=== PATIENT | female | born 1980 | race Caucasian/White ===

== ENCOUNTER 2018-02-22 18:07 | Outpatient (CLI) | payer OTHER ==
[2018-02-22 18:27] VITALS: BP 116/69
[2018-02-22] MEDS ORDERED: LACTATED RINGERS 500 ML IV ONE (18:50)
[2018-02-22 19:53] LABS: Bilirubin,Urine NEG (Negative); Blood,Urine NEG (Negative); Color,Urine Straw (Yellow); Protein,Urine <15 mg/dL mg/dL (Negative); Urobilinogen,Urine < 2.0 mg/dL (<2.0); WBC,Urine < 1.0 /HPF (0.0-6.0)
== END 2018-02-22 20:48 | disposition home or self-care (01) ==
LOC: TRG 18:07
PROVIDERS: ATTEND Obstetrics & Gynecology
DX: O47.03 False labor before 37 completed weeks of gestation, third trimester (principal); Z3A.33 33 weeks gestation of pregnancy
CPT/HCPCS: 59025; 81001; 96360; J7120

== ENCOUNTER 2018-02-23 19:04 | Inpatient (IN) | payer OTHER ==
[2018-02-23] MEDS ORDERED: LACTATED RINGERS 1,000 ML IV ONE (19:30)
[2018-02-23] MEDS ORDERED: XYLOCAINE 1% MPF 5 mL INFILTRATI ONE (20:45)
[2018-02-23 20:48] LABS: Bilirubin,Urine NEG (Negative); Blood,Urine NEG (Negative); Color,Urine Yellow (Yellow); Mucus,Urine FEW /HPF; Protein,Urine <15 mg/dL mg/dL (Negative)
[2018-02-23] MEDS ORDERED: BRETHINE SUB-Q ONE (20:55)
--- NOTE | 2018-02-23 20:55 | History and Physical Report ---
History of Present Illness Chief complaint: contractions History of present illness: 37yo 32 weeks presented to L&D complaining of contractions. NST reveals contractions every 2-3min. This is her second admission in 2 days. She has had a vaginal exam within last 24hrs so no fibronectin was done. Multiparous cervix outer os 0-1, inner os closed/thick/high. She denies loss of fluid or vaginal bleeding. She is a patient of [facility]. She states she is not being co- managed by maternal medicine for advanced maternal age. Past History - Obstetrical History : 5 Medications and Allergies Allergies Allergy/AdvReac Type Severity Reaction Status Date / Time No Known Allergies Allergy Unverified 02/22/18 18:49 Home Medications Medication Instructions Recorded Confirmed Last Taken Type Iron 256 MG tab 1 tab PO QDAY 02/22/18 02/22/18 02/22/18 10:00 History Multivitamin Tablet 1 tab PO QDAY 02/22/18 02/22/18 1 Month Ago History ~01/23/18 Active Meds: Active Medications Betamethasone Acet/Betameth SodPhos (Celestone Soluspan) 12 mg IM Q24HR LUZ Ceftriaxone Sodium (Rocephin/Ns 2 Gm/100 Ml) 2 gm in 100 mls @ 200 mls/hr IV ONCE LUZ - Vital Signs Vital signs: Vital Signs Pulse Pulse Ox 101 H 99 02/23/18 19:25 02/23/18 19:25 Temp Pulse Resp BP Pulse Ox 98 F 88 18 114/71 98 02/23/18 19:32 02/23/18 20:50 02/23/18 19:32 02/23/18 19:29 02/23/18 20:50 - Obstetrical FHR: category 1 Uterine Contraction Monitor Mode: External Cervical Dilatation: 0 Cervical Effacement Percentage: 30 station: 40 Uterine Contraction Pattern: Regular Results All other labs normal. Assessment and Plan - Patient Problems (1) 32 weeks gestation of Current Visit: Yes Status: Acute (2) contractions Current Visit: Yes Status: Acute Plan to address problem: 1. Terbutaline x 1 2. IV hydration. UA yesterday reveals small amount of WBC. Will give Rocephin for UTI. 3. fFN if patient is hospitalized >24hrs 4. US cervical length, EFW, ANDREW evaluate for polyhydramnios, LGA. 5. Steroids for lung maturity. 6. Monitor for labor, continuous monitoring. (3) Advanced maternal age in Current Visit: Yes Status: Acute Plan to address problem: 1. Refer to [facility] if indicated inpatient for labor, otherwise in outpatient setting for advanced maternal age.
[2018-02-23] MEDS ORDERED: ROCEPHIN 2,000 MG in NACL 0.9% 50 ML IV SCH (21:00)
[2018-02-23] MEDS ORDERED: ROCEPHIN/NS 2 GM/100 ML 2 GM/100 ML BAG IV SCH (21:00)
[2018-02-23] MEDS ORDERED: CELESTONE SOLUSPAN IM SCH (21:00)
[2018-02-23] MEDS ORDERED: TYLENOL PO PRN (21:05)
[2018-02-23] MEDS ORDERED: COLACE PO PRN (21:05)
[2018-02-23] MEDS ORDERED: LACTATED RINGERS 1,000 ML IV SCH (22:00)
--- NOTE | 2018-02-24 05:28 | Ultrasound Report ---
FINAL REPORT PROCEDURE: US OB BPP WO NON-STRESS TECHNIQUE: Sonographic evaluation for breathing, movement, tone, and amniotic fluid volume was performed. CPT 70074 HISTORY: labor COMPARISON: No prior studies are available for comparison. FINDINGS: Amniotic fluid volume: Normal-score 2. At least one vertical pocket > 2 cm or more in vertical axis. breathing: Normal-score 2. movement: Normal-score 2. tone: Normal. Score: 8 of 8. IMPRESSION: Normal biophysical profile.
--- NOTE | 2018-02-24 05:30 | Ultrasound Report ---
FINAL REPORT PROCEDURE: US OB > = 14 WEEKS FETUS TECHNIQUE: Real-time limited sonographic examination was performed for evaluation of amniotic fluid volume, cervical length for each fetus with image documentation (1 or more fetuses). CPT 86249 HISTORY: labor, EFW, ANDREW, cervical length COMPARISON: No prior studies are available for comparison. FINDINGS: MATERNAL Uterus: Within normal limits . Cervix length: 3.9 cm. Internal Os: Closed . FETUS IUP: Single living intrauterine . Position: Vertex. Placental position: Anterior, without previa . Amniotic fluid volume: 4 quadrant amniotic fluid volume measurement 11.5 centimeter Heart rate and rhythm: 131 BPM, Regular . anatomic survey: Not performed with this study. MEASUREMENTS BPD: 7.8 centimeter. HC: 28.1 centimeter. AC: 28.1 centimeter. FL: 6 centimeter. Mean Gestational Age (composite criteria): 31 weeks 3 days. Ratio biometry: Normal . Estimated Weight: 1811 grams. Interval growth: Appropriate . Estimated Due Date (earliest scan): 04/20/2018. IMPRESSION: 1. Single living intrauterine gestation at approximately 31 weeks 3 days. 2. EDC by US 04/20/2018.
[2018-02-24 08:25] VITALS: BP 122/64
--- NOTE | 2018-02-24 08:26 | Progress Note ---
Assessment and Plan A: 37-year-old at 32+1 week to rule out labor -Cat 1 tracing Issues -CL is 3.9 cm -Cephalic presentation -s/p BMZ # 1 (complete course tonight at 21:00) P: -Will D/C home -Return to the hospital to complete her steroid this night ~ 21:00 -Follow-up in clinic as planned - Patient Problems (1) 32 weeks gestation of Current Visit: Yes Status: Acute (2) contractions Current Visit: Yes Status: Acute Subjective - Subjective Date of service: 02/24/18 Principal diagnosis: IUP at 32+1 wks Interval history: Patient seen and examined, stable doing well. No contractions this morning, no loss of fluid no vaginal bleeding plus movement Patient reports: new complaints, movement normal, no loss of fluid, no vaginal bleeding, no contractions Objective - Vital Signs Vital Signs: Vital Signs - 12hr 02/23/18 02/23/18 02/23/18 20:25 20:30 20:35 Temperature Pulse Rate 95 H 89 96 H Respiratory Rate Blood Pressure O2 Sat by Pulse 99 99 100 Oximetry 02/23/18 02/23/18 02/23/18 20:40 20:45 20:50 Temperature Pulse Rate 92 H 91 H 88 Respiratory Rate Blood Pressure O2 Sat by Pulse 99 99 98 Oximetry 02/23/18 02/23/18 02/23/18 20:59 21:03 22:34 Temperature 98.2 F Pulse Rate 98 H 90 Respiratory 16 Rate Blood Pressure O2 Sat by Pulse 97 84 Oximetry 02/23/18 02/24/18 02/24/18 22:42 00:18 00:23 Temperature Pulse Rate 102 H 102 H 96 H Respiratory Rate Blood Pressure 119/68 O2 Sat by Pulse 98 98 Oximetry 02/24/18 02/24/18 02/24/18 00:28 00:33 00:38 Temperature Pulse Rate 96 H 100 H 98 H Respiratory Rate Blood Pressure O2 Sat by Pulse 98 98 96 Oximetry 02/24/18 02/24/18 02/24/18 00:43 00:48 00:53 Temperature Pulse Rate 96 H 97 H 96 H Respiratory Rate Blood Pressure O2 Sat by Pulse 97 96 97 Oximetry 02/24/18 02/24/18 02/24/18 00:58 00:59 01:03 Temperature Pulse Rate 97 H 104 H 98 H Respiratory Rate Blood Pressure O2 Sat by Pulse 97 91 96 Oximetry 02/24/18 02/24/18 02/24/18 01:08 01:12 01:13 Temperature Pulse Rate 92 H 90 86 Respiratory Rate Blood Pressure O2 Sat by Pulse 97 93 96 Oximetry 02/24/18 02/24/18 02/24/18 01:18 01:23 01:28 Temperature Pulse Rate 96 H 94 H 92 H Respiratory Rate Blood Pressure O2 Sat by Pulse 98 97 98 Oximetry 02/24/18 02/24/18 02/24/18 01:33 01:38 01:43 Temperature Pulse Rate 91 H 90 89 Respiratory Rate Blood Pressure O2 Sat by Pulse 97 98 98 Oximetry 02/24/18 02/24/18 02/24/18 01:48 01:53 01:58 Temperature Pulse Rate 91 H 89 90 Respiratory Rate Blood Pressure O2 Sat by Pulse 97 98 98 Oximetry 02/24/18 02/24/18 02/24/18 02:03 02:08 02:13 Temperature Pulse Rate 90 89 90 Respiratory Rate Blood Pressure O2 Sat by Pulse 97 98 98 Oximetry 02/24/18 02/24/18 02/24/18 02:18 02:24 02:29 Temperature Pulse Rate 90 90 89 Respiratory Rate Blood Pressure O2 Sat by Pulse 98 98 96 Oximetry 02/24/18 02/24/18 02/24/18 02:34 02:39 02:44 Temperature Pulse Rate 86 92 H 90 Respiratory Rate Blood Pressure O2 Sat by Pulse 97 100 98 Oximetry - Exam Abdomen: Present: normal appearance, soft. Absent: distention, tenderness, guarding, rigidity Uterus: Present: normal. Absent: tenderness - Labs Labs: Laboratory Results - last 24 hr 02/23/18 20:05 Urine Color Yellow Urine Turbidity Clear Urine pH 6.0 Ur Specific Jensen 1.015 Urine Protein <15 mg/dl Urine Glucose (UA) Neg Urine Ketones Tr Urine Blood Neg Urine Nitrite Neg Urine Bilirubin Neg Urine Urobilinogen 4.0 Ur Leukocyte Esterase Neg Urine WBC (Auto) 1.0 Urine RBC (Auto) 1.0 U Epithel Cells (Auto) 5.0 Urine Mucus Few
--- NOTE | 2018-02-24 08:30 | Discharge Summary ---
Providers - Providers Date of Admission: 02/23/18 21:51 Date of discharge: 02/24/18 Attending physician: PHIL GARCIA MD Primary care physician: PHIL GARCIA MD Hospitalization Reason for admission: IUP - , observation Discharge diagnosis: other ( contractions in IUP at 32+1 weeks) Hospital course: 37yo 32 weeks presented to L&D complaining of contractions. NST reveals contractions every 2-3min. This is her second admission in 2 days. She has had a vaginal exam within last 24hrs so no fibronectin was done. Multiparous cervix outer os 0-1, inner os closed/thick/high. She denies loss of fluid or vaginal bleeding. She is a patient of [facility]. She states she is not being co- managed by maternal medicine for advanced maternal age. A: 37-year-old at 32+1 week to rule out labor -Cat 1 tracing Issues -CL is 3.9 cm -Cephalic presentation -s/p BMZ # 1 (complete course tonight at 21:00) P -Will D/C home -Return to the hospital to complete her steroid this night ~ 21:00 -Follow-up in clinic as planned Condition at discharge: Good Disposition: [id number] TO HOME OR SELFCARE - Discharge Diagnoses (1) 32 weeks gestation of Status: Acute (2) contractions Status: Acute Plan - Provider Discharge Summary Activity: no sex for 6 weeks, no heavy lifting 4 weeks, no strenuous exercise Diet: routine Instructions: other (return to the hospital this night for second steroid shot) Additional instructions: [] Smoking cessation referral if applicable(refer to patient education folder for contact #) [] Refer to [facility] Booklet Call your doctor immediately for: * Fever > 100.5 * Heavy vaginal bleeding ( >1 pad per hour) * Severe persistent headache * Shortness of breath * Reddened, hot, painful area to leg or breast * Drainage or odor from incision. * Keep incision clean and dry at all times and follow doctor's instructions regarding bathing/showering - Follow up plan Follow up: PHIL GARCIA MD [Primary Care Provider] - 7 Days
[2018-02-24] MEDS ORDERED: PRENATAL VITAMIN PO SCH (10:00)
== END 2018-02-24 10:46 | disposition home or self-care (01) | DRG 833 ==
LOC: TRG 19:04 → LD 21:51 → OBSVTOIN 02-24 10:29
PROVIDERS: ADMIT Obstetrics & Gynecology; ATTEND Obstetrics & Gynecology
DX: O60.03 Preterm labor without delivery, third trimester (principal); Z3A.32 32 weeks gestation of pregnancy; O09.523 Supervision of elderly multigravida, third trimester
CPT/HCPCS: 76805; 76819; 81001; G0378; J0696; J0702; J3105; J7120

== ENCOUNTER 2018-02-24 21:02 | Outpatient (CLI) | payer OTHER ==
[2018-02-24] MEDS ORDERED: CELESTONE SOLUSPAN IM ONE (22:36)
[2018-02-24 22:45] VITALS: BP 110/68
--- NOTE | 2018-02-25 02:46 | Event Note ---
Date: 02/24/18 Patient presented to L&D at 32 weeks gestation for Celestone injection. Celestone 12 mg IM given.
== END 2018-02-24 23:15 | disposition home or self-care (01) ==
LOC: TRG 21:02
PROVIDERS: ATTEND Obstetrics & Gynecology
DX: O99.323 Drug use complicating pregnancy, third trimester (principal); Z3A.32 32 weeks gestation of pregnancy
CPT/HCPCS: J0702